=== PATIENT | female | born 1995 ===

== ENCOUNTER 2017-07-15 16:06 | Emergency (ER) | payer MEDICAID ==
[2017-07-15 16:07] VITALS: BMI 24.5
[2017-07-15 16:13] VITALS: BP 149/74; PULSE 87; RESP 16; TEMP 97.9; O2SAT 100
--- NOTE | 2017-07-15 16:41 | ED PDOC ---
HPI: Female Pain Time Seen by Provider: 07/15/17 16:38 Chief Complaint (Nursing): Female Genitourinary Chief Complaint (Provider): vaginal bleeding History Per: Patient Additional Complaint(s): 21-year-old female presents to emergency department with vaginal spotting that started today. Patient was seen on July 06 in [place] ED and was diagnosed with possible ectopic . Patient was instructed to have Beta repeated in 2 days but she has not done so as she was unable to obtain appointment with women's clinic until tomorrow. Patient started to have vaginal spotting and cramping lower abdominal pain today prompting ED visit. She denies fever or chills. Patient denies any dysuria. Past Medical History Reviewed: Historical Data, Nursing Documentation, Vital Signs Vital Signs: Last Vital Signs Temp 97.9 F 07/15/17 16:10 Pulse 87 07/15/17 16:10 Resp 16 07/15/17 16:10 BP 149/74 07/15/17 16:10 Pulse Ox 100 07/15/17 16:10 - Medical History PMH: No Chronic Diseases - Surgical History Surgical History: No Surg Hx - Family History Family History: States: No Known Family Hx - Living Arrangements Living Arrangements: With Family - Social History Current smoker - smoking cessation education provided: Yes ("sometimes") Alcohol: None Drugs: Denies - Home Medications Home Medications: Ambulatory Orders Medication Instructions Recorded 21/Iron Fu/Folic Acid 1 each PO DAILY #30 tablet 07/04/17 [ Complete Caplet] - Allergies Allergies/Adverse Reactions: Allergies Allergy/AdvReac Type Severity Reaction Status Date / Time pineapple Allergy ANGIOEDEMA Verified 07/15/17 16:10 Review of Systems ROS Statement: Except As Marked, All Systems Reviewed And Found Negative Constitutional: Negative for: Fever Genitourinary Female: Positive for: Vaginal Bleeding (spotting), Pelvic Pain. Negative for: Dysuria, Frequency, Incontinence, Hematuria, Vaginal Discharge, Rash Physical Exam - Reviewed Nursing Documentation Reviewed: Yes Vital Signs Reviewed: Yes - Physical Exam Appears: Positive for: Non-toxic Skin: Negative for: Rash Eye Exam: Positive for: Normal appearance Cardiovascular/Chest: Positive for: Regular Rate, Rhythm Respiratory: Positive for: Normal Breath Sounds Gastrointestinal/Abdominal: Positive for: Soft. Negative for: Tenderness, Distended, Guarding, Rebound Back: Negative for: L CVA Tenderness, R CVA Tenderness Extremity: Positive for: Normal ROM Neurologic/Psych: Positive for: Alert, Oriented - Laboratory Results Result Diagrams: 07/15/17 17:41 07/15/17 17:41 Urine POC: Positive Urine dip results: Positive for: Blood (moderate). Negative for: Leukocyte Esterase, Nitrate, Ketones, Glucose, Bilirubin, Protein - ECG O2 Sat by Pulse Oximetry: 100 Pulse Ox Interpretation: Normal - Other Rad OB US X-Ray: Read By Radiologist X-Ray Interpretation: see below Medical Decision Making Medical Decision Makin21 year old with vaginal spotting, possible ectopic Plan: Urine dip and test Beta quant CBC CMP OB TV US US: FINDINGS: Uterus: Uterus measures approximately 8 x 4 x 4.5 cm. Endometrium in the fundus measures 12.8 mm in width. Endometrium in the lower portions of the uterus is heterogeneous.. There is no intrauterine gestation. There is trace fluid in cervical canal. Ovaries: Left ovary measures approximately 3 x 1.5 x 2.7 cm.There are multiple small follicles. Right ovary measures approximately 3 x 1 cm. There is flow in both ovaries on Doppler imaging. Adnexa: There are no adnexal masses Free fluid: There is no free fluid. IMPRESSION: No intrauterine or ectopic gestation identified; thickened endometrium; minimal fluid in the cervical canal. Correlation with serial beta-hCG levels and followup sonography suggested as clinically indicated. Beta 07/04/17: 216 07/06/17: 249 Today: 284 Case was d/w OB household appliances salesperson, Dr. Okeefe. She states to have patient follow up tomorrow as scheduled with women's clinic for repeat beta. Advised NSAID's for pain as needed. Patient made aware she can RTED at any time if acutely worse. Disposition - Clinical Impression Clinical Impression: Threatened - Patient ED Disposition Is Patient to be Admitted: No Counseled Patient/Family Regarding: Studies Performed, Diagnosis, Need For Followup - Disposition Referrals: [facility] [Outside] Disposition: Routine/Home Disposition Time: 18:53 Condition: STABLE Additional Instructions: Follow up tomorrow as scheduled with women's clinic. Beta level needs to be repeated. Instructions: Threatened Miscarriage (ED) Forms: [employer] (Burmese) Results - Lab Results Lab Results: 07/15/17 07/15/17 17:41 17:41 WBC 5.2 RBC 4.65 Hgb 13.7 Hct 41.4 MCV 89.1 MCH 29.4 MCHC 33.0 RDW 14.9 H Plt Count 312 MPV 8.3 Neut % (Auto) 60.4 Lymph % (Auto) 28.8 [place] % (Auto) 8.4 Eos % (Auto) 1.1 Baso % (Auto) 1.3 Neut # 3.1 Lymph # 1.5 [place] # 0.4 Eos # 0.1 Baso # 0.1 Sodium 138 Potassium 3.7 Chloride 105 Carbon Dioxide 24 Anion Gap 13 BUN 10 Creatinine 0.6 L Est GFR ( Amer) > 60 Est GFR (Non-Af Amer) > 60 Random Glucose 82 Calcium 8.9 Total Bilirubin 0.5 AST 37 H D ALT 51 Alkaline Phosphatase 44 Total Protein 7.3 Albumin 4.3 Globulin 3.0 Albumin/Globulin Ratio 1.4 Beta HCG, Quant 284.95
[2017-07-15 17:58] LABS: BASO # 0.1 K/uL (0.0-0.2); BASO % 1.3 % (0.0-2.0); EOS # 0.1 K/uL (0.0-0.7); EOS % 1.1 % (0.0-4.0); HEMATOCRIT 41.4 % (34.0-47.0); LYMPH # 1.5 K/uL (1.0-4.3); LYMPH % 28.8 % (20.0-40.0); MEAN CELL VOLUME 89.1 fl (81.0-99.0); MEAN CORPUSCULAR HEMOGLOBIN 29.4 pg (27.0-31.0); MEAN PLATELET VOLUME 8.3 fl (7.2-11.7); MONO # 0.4 K/uL (0.0-0.8); MONO % 8.4 % (0.0-10.0); NEUT # 3.1 K/uL (1.8-7.0); NEUT % 60.4 % (50.0-75.0); NRBC % 0.3 % (0.0-0.0); RED CELL DISTRIBUTION WIDTH 14.9 % (11.5-14.5); WHITE BLOOD COUNT 5.2 K/uL (4.8-10.8)
[2017-07-15 18:03] LABS: ALB/GLOB RATIO 1.4 (1.0-2.1); ALKALINE PHOSPHATASE 44 U/L (38-126); ALT/SGPT 51 U/L (9-52); AST/SGOT 37 U/L (14-36); BILIRUBIN,TOTAL 0.5 mg/dl (0.2-1.3); BLOOD UREA NITROGEN 10 mg/dl (7-17); CALCIUM 8.9 mg/dL (8.4-10.2); CARBON DIOXIDE 24 mmol/L (22-30); CHLORIDE 105 mmol/L (98-107); GFR AFRICAN-AMERICAN > 60; GLUCOSE,RANDOM 82 mg/dL (65-105); POTASSIUM 3.7 MMOL/L (3.6-5.0); SODIUM 138 mmol/l (132-148); TOTAL PROTEIN 7.3 G/DL (6.3-8.2)
--- NOTE | 2017-07-15 18:44 | US ---
EXAM: US , Transvaginal EXAM DATE/TIME: 07/15/2017 5:10 PM CLINICAL HISTORY: 21 years old, female; Pain; Other: Bleeding; Gestational age or lmp: Unknown; Additional info: ? Ectopic, vaginal spotting TECHNIQUE: Real-time transvaginal obstetrical ultrasound of the maternal pelvis and a first trimester with image documentation. Transvaginal imaging was used for better evaluation of the fetus and adnexa. COMPARISON: There are no prior studies for comparison. FINDINGS: Uterus: Uterus measures approximately 8 x 4 x 4.5 cm. Endometrium in the fundus measures 12.8 mm in width. Endometrium in the lower portions of the uterus is heterogeneous.. There is no intrauterine gestation. There is trace fluid in cervical canal. Ovaries: Left ovary measures approximately 3 x 1.5 x 2.7 cm.There are multiple small follicles. Right ovary measures approximately 3 x 1 cm. There is flow in both ovaries on Doppler imaging. Adnexa: There are no adnexal masses Free fluid: There is no free fluid. IMPRESSION: No intrauterine or ectopic gestation identified; thickened endometrium; minimal fluid in the cervical canal Correlation with serial beta-hCG levels and followup sonography suggested as clinically indicated
== END 2017-07-15 19:19 | disposition home or self-care (01) ==
LOC: H.ER 16:06
DX: O20.0 Threatened abortion (principal)

== ENCOUNTER 2017-07-16 03:01 | Emergency (ER) | payer MEDICAID ==
[2017-07-16 03:14] VITALS: BMI 28.1
[2017-07-16 03:15] VITALS: BP 131/85; PULSE 96; RESP 16; TEMP 98.6; O2SAT 100
[2017-07-16 03:45] LABS: BASO # 0.1 K/uL (0.0-0.2); BASO % 0.8 % (0.0-2.0); EOS # 0.1 K/uL (0.0-0.7); EOS % 1.7 % (0.0-4.0); HEMATOCRIT 41.1 % (34.0-47.0); LYMPH # 1.9 K/uL (1.0-4.3); LYMPH % 29.1 % (20.0-40.0); MEAN CELL VOLUME 89.1 fl (81.0-99.0); MEAN CORPUSCULAR HEMOGLOBIN 29.9 pg (27.0-31.0); MEAN CORPUSCULAR HGB CONC 33.6 g/dL (33.0-37.0); MEAN PLATELET VOLUME 7.9 fl (7.2-11.7); MONO # 0.7 K/uL (0.0-0.8); NEUT # 3.9 K/uL (1.8-7.0); NEUT % 58.4 % (50.0-75.0); NRBC % 0.1 % (0.0-0.0); WHITE BLOOD COUNT 6.6 K/uL (4.8-10.8)
[2017-07-16 03:56] LABS: RBC URINE 2697 /hpf (0-3); URINE BILIRUBIN NEGATIVE (NEGATIVE); URINE BLOOD LARGE (NEGATIVE); URINE COLOR RED (YELLOW); URINE GLUCOSE (UA) NEG (Normal); URINE KETONE NEGATIVE (NEGATIVE); URINE LEUKOCYTE ESTERASE NEG Leu/uL (Negative); URINE PROTEIN 100 mg/dL (NEGATIVE); URINE UROBILINOGEN 0.2-1.0 mg/dL (0.2-1.0); WBC URINE 11 /hpf (0-5)
[2017-07-16 04:00] LABS: BLOOD UREA NITROGEN 13 mg/dl (7-17); CALCIUM 8.9 mg/dL (8.4-10.2); CARBON DIOXIDE 26 mmol/L (22-30); CHLORIDE 108 mmol/L (98-107); GFR AFRICAN-AMERICAN > 60; GLUCOSE,RANDOM 83 mg/dL (65-105); POTASSIUM 4.5 MMOL/L (3.6-5.0); SODIUM 142 mmol/l (132-148)
--- NOTE | 2017-07-16 04:55 | ED PDOC ---
HPI: Female Pain Time Seen by Provider: 07/16/17 03:18 Chief Complaint (Nursing): Female Genitourinary Chief Complaint (Provider): abdominal pain/vaginal bleeding History Per: Patient (21 y/o female here for vaginal bleeding/abdominal pain worsening today. Was seen earlier in [place] for evaluation of similar symptoms and was told she had a possible ectopic vs early and needed repeat beta quant testing. f/u in ED today with US noting no IUP and beta quant 216. Notes worsening pain and in ED now for evaluation. TOok tylenol prior to arrival without relief.) Past Medical History Reviewed: Historical Data, Nursing Documentation, Vital Signs Vital Signs: Last Vital Signs Temp 98.6 F 07/16/17 03:13 Pulse 96 H 07/16/17 03:13 Resp 16 07/16/17 03:13 BP 131/85 07/16/17 03:13 Pulse Ox 100 07/16/17 03:13 - Medical History PMH: Asthma, Gastritis Denies: Depression - Family History Family History: States: No Known Family Hx - Immunization History Hx Tetanus Toxoid Vaccination: No Hx Influenza Vaccination: No Hx Pneumococcal Vaccination: No - Home Medications Home Medications: Ambulatory Orders Medication Instructions Recorded 21/Iron Fu/Folic Acid 1 each PO DAILY #30 tablet 07/04/17 [ Complete Caplet] Ibuprofen [Motrin] 600 mg PO Q8 PRN #21 tab 07/16/17 oxyCODONE/Acetaminophen [Percocet 1 ea PO Q6 PRN #5 tab 07/16/17 5/325 mg Tab] - Allergies Allergies/Adverse Reactions: Allergies Allergy/AdvReac Type Severity Reaction Status Date / Time pineapple Allergy ANGIOEDEMA Verified 07/16/17 03:12 Review of Systems ROS Statement: Except As Marked, All Systems Reviewed And Found Negative Physical Exam - Reviewed Nursing Documentation Reviewed: Yes Vital Signs Reviewed: Yes - Physical Exam Appears: Positive for: Well, Non-toxic, No Acute Distress Head Exam: Positive for: ATRAUMATIC, NORMAL INSPECTION, NORMOCEPHALIC Skin: Positive for: Normal Color, Warm, DRY Eye Exam: Positive for: EOMI, Normal appearance, PERRL ENT: Positive for: Normal ENT Inspection Neck: Positive for: Normal, Painless ROM Cardiovascular/Chest: Positive for: Regular Rate, Rhythm Respiratory: Positive for: CNT, Normal Breath Sounds Gastrointestinal/Abdominal: Positive for: Normal Exam, Bowel Sounds, Soft Pelvic Exam: Positive for: Other (blood in vaginal vault with ?products noted.) Back: Positive for: Normal Inspection Extremity: Positive for: Normal ROM Neurologic/Psych: Positive for: Alert, Oriented - Laboratory Results Result Diagrams: 07/16/17 03:30 07/16/17 03:30 - ECG O2 Sat by Pulse Oximetry: 100 - Progress ED Course And Treament: Morphine 2 mg iv x 1 dose for pain beta 175 d/w Dr. Okeefe; advised f/u with clinic and pain management. morphine 4 mg iv x 2nd dose for pain Disposition - Clinical Impression Clinical Impression: Miscarriage - Patient ED Disposition Is Patient to be Admitted: No - Disposition Referrals: [facility] [Outside] Disposition: Routine/Home Disposition Time: 05:02 Condition: FAIR Prescriptions: Ibuprofen [Motrin] 600 mg PO Q8 PRN #21 tab PRN Reason: Pain, Moderate (4-7) oxyCODONE/Acetaminophen [Percocet 5/325 mg Tab] 1 ea PO Q6 PRN #5 tab PRN Reason: Pain, Moderate (4-7) Instructions: Spontaneous Miscarriage (ED) Forms: [employer] (Bulgarian), [facility] ED School/Work Excuse
[2017-07-16] MEDS ORDERED: Morphine 4 MG/ML VIAL IVP ONE (05:08)
[2017-07-16] MEDS ORDERED: Morphine 4 MG/ML VIAL ONE (05:11)
== END 2017-07-16 05:54 | disposition home or self-care (01) ==
LOC: H.ER 03:01
DX: O03.9 Complete or unspecified spontaneous abortion without complication (principal); J45.909 Unspecified asthma, uncomplicated
CPT/HCPCS: 80048; 81003; 81025; 84702; 85025; 87086; 88305; 96374; 96376; 99284; J2270

== ENCOUNTER 2018-02-22 23:33 | Emergency (ER) | payer SELFPAY ==
[2018-02-22 23:35] VITALS: BMI 28.1
[2018-02-22 23:48] VITALS: TEMP 99.2
[2018-02-23] MEDS ORDERED: Sodium Chloride 0.9% 1,000 ML IV STA (01:14)
--- NOTE | 2018-02-23 01:46 | ED PDOC ---
HPI: Abdomen Time Seen by Provider: 02/23/18 00:51 Chief Complaint (Nursing): Abdominal Pain Chief Complaint (Provider): Abdominal Pain History Per: Patient History/Exam Limitations: no limitations Onset/Duration Of Symptoms: Days (x 3) Current Symptoms Are (Timing): Still Present Quality Of Discomfort: "Pain" Associated Symptoms: Nausea, Vomiting, Diarrhea Additional Complaint(s): 22 year old female with a history of ectopic presents to the ED with abdominal pain associated with nausea, nbnb vomiting and diarrhea for the last 3 days. Patient reports her LMP was irregular because she only bled for 3 days. She is unsure about her status. PMD: none provided Past Medical History Reviewed: Historical Data, Nursing Documentation, Vital Signs Vital Signs: Last Vital Signs Temp 99.2 F 02/22/18 23:46 Pulse 87 02/23/18 05:45 Resp 16 02/23/18 05:45 BP 122/87 02/23/18 05:45 Pulse Ox 98 02/23/18 05:45 - Medical History PMH: Asthma, Gastritis Denies: Depression Other PMH: ectopic - Surgical History Surgical History: No Surg Hx - Family History Family History: States: Unknown Family Hx - Social History Current smoker - smoking cessation education provided: No Alcohol: None Drugs: Denies - Immunization History Hx Tetanus Toxoid Vaccination: No Hx Influenza Vaccination: No Hx Pneumococcal Vaccination: No - Home Medications Home Medications: Ambulatory Orders Medication Instructions Recorded 21/Iron Fu/Folic Acid 1 each PO DAILY #30 tablet 07/04/17 [ Complete Caplet] Ibuprofen [Motrin] 600 mg PO Q8 PRN #21 tab 07/16/17 oxyCODONE/Acetaminophen [Percocet 1 ea PO Q6 PRN #5 tab 07/16/17 5/325 mg Tab] Dicyclomine [Bentyl] 20 mg PO Q12 PRN #20 tab 02/23/18 Ondansetron ODT [Zofran ODT] 4 mg PO Q6 PRN #8 odt 02/23/18 - Allergies Allergies/Adverse Reactions: Allergies Allergy/AdvReac Type Severity Reaction Status Date / Time pineapple Allergy ANGIOEDEMA Verified 02/22/18 23:45 Review of Systems ROS Statement: Except As Marked, All Systems Reviewed And Found Negative Gastrointestinal: Positive for: Abdominal Pain Physical Exam - Reviewed Nursing Documentation Reviewed: Yes Vital Signs Reviewed: Yes - Physical Exam Appears: Positive for: Uncomfortable Head Exam: Positive for: ATRAUMATIC, NORMAL INSPECTION, NORMOCEPHALIC Skin: Positive for: Normal Color, Warm, Dry Eye Exam: Positive for: EOMI, Normal appearance, PERRL Neck: Positive for: Normal, Painless ROM, Supple Cardiovascular/Chest: Positive for: Regular Rate, Rhythm. Negative for: Murmur Respiratory: Positive for: Normal Breath Sounds. Negative for: Respiratory Distress Gastrointestinal/Abdominal: Positive for: Tenderness (RLQ and suprapubic ) Extremity: Positive for: Normal ROM. Negative for: Deformity Neurologic/Psych: Positive for: Alert, Oriented. Negative for: Motor/Sensory Deficits - Laboratory Results Result Diagrams: 02/23/18 01:57 02/23/18 01:57 - ECG O2 Sat by Pulse Oximetry: 100 (RA) Pulse Ox Interpretation: Normal Medical Decision Making Medical Decision Making: Time: 01:14 Impression: 22 year old female with abdominal pain Initial Plan: --Abd and Pelvis CT --Beta-HCG --CMP --Lipase --Urine preg --Urine dip --Morphine 4 mg IVP --NS IV 1,000 mls/hr Abd and Pelvis CT FINDINGS: Lung bases: Unremarkable. No mass. No consolidation. ABDOMEN: Liver: Unremarkable. No mass. Gallbladder and bile ducts: Unremarkable. No ductal dilation. Pancreas: Unremarkable. No mass. No ductal dilation. Spleen: Left upper quadrant splenule. Unremarkable spleen. Adrenals: Unremarkable. No mass. Kidneys and ureters: Right renal hypodensity. No hydronephrosis. Stomach and bowel: Diverticulosis. No obstruction. No mucosal thickening. PELVIS: Appendix: Normal appendix. Bladder: Partially decompressed bladder with bladder wall thickening. Correlation with urinalysis is recommended only if clinical cystitis is suspected. Reproductive: Uterus is seen. ABDOMEN and PELVIS: Bones/joints: Femoral bone island. No acute fracture. No dislocation. Soft tissues: Body piercing umbilical ring. Vasculature: Unremarkable. No abdominal aortic aneurysm. Lymph nodes: Multiple subcentimeter mesenteric and ileocolic lymph nodes. Findings are nonspecific but may represent mesenteric adenitis. IMPRESSION: No acute findings Time: 05:32 --Patient reports an improvement of symptoms and is stable for discharge. Labs were reviewed and reveal no clinically significant abnormalities. Diagnosis is gastroentertitis. ---- Scribe Attestation: Documented by Sandie Chinchilla, acting as a scribe for Brad Clark MD Provider Scribe Attestation: All medical record entries made by the Scribe were at my direction and personally dictated by me. I have reviewed the chart and agree that the record accurately reflects my personal performance of the history, physical exam, medical decision making, and the department course for this patient. I have also personally directed, reviewed, and agree with the discharge instructions and disposition. Disposition - Clinical Impression Clinical Impression: Gastroenteritis Counseled Patient/Family Regarding: Studies Performed, Diagnosis, Need For Followup, Rx Given - Disposition Disposition: Routine/Home Disposition Time: 05:00 Condition: STABLE Prescriptions: Dicyclomine [Bentyl] 20 mg PO Q12 PRN #20 tab PRN Reason: abdominal pain/diarrhea Ondansetron ODT [Zofran ODT] 4 mg PO Q6 PRN #8 odt PRN Reason: Nausea/Vomiting Instructions: Gastroenteritis (ED) Forms: [employer] (Irish)
[2018-02-23 02:03] LABS: BASO # 0.1 K/uL (0.0-0.2); BASO % 0.7 % (0.0-2.0); EOS # 0.2 K/uL (0.0-0.7); EOS % 2.5 % (0.0-4.0); HEMOGLOBIN 14.7 g/dL (12.0-16.0); LYMPH # 1.7 K/uL (1.0-4.3); LYMPH % 19.8 % (20.0-40.0); MEAN CELL VOLUME 90.4 fl (81.0-99.0); MEAN CORPUSCULAR HEMOGLOBIN 30.7 pg (27.0-31.0); MEAN CORPUSCULAR HGB CONC 33.9 g/dL (33.0-37.0); MEAN PLATELET VOLUME 8.4 fl (7.2-11.7); MONO # 0.4 K/uL (0.0-0.8); MONO % 5.2 % (0.0-10.0); NEUT # 6.1 K/uL (1.8-7.0); NEUT % 71.8 % (50.0-75.0); NRBC % 0.1 % (0.0-0.0); RBC 4.8 Mil/uL (3.80-5.20); RED CELL DISTRIBUTION WIDTH 13.9 % (11.5-14.5); WHITE BLOOD COUNT 8.5 K/uL (4.8-10.8)
[2018-02-23 02:11] LABS: ALB/GLOB RATIO 1.4 (1.0-2.1); ALBUMIN 4.3 g/dL (3.5-5.0); ALT/SGPT 23 U/L (9-52); AST/SGOT 27 U/L (14-36); BLOOD UREA NITROGEN 7 mg/dl (7-17); CALCIUM 9.5 mg/dL (8.4-10.2); GFR AFRICAN-AMERICAN > 60; GFR NON-AFRICAN AMERICAN > 60; LIPASE 142 U/L (23-300)
[2018-02-23] MEDS ORDERED: Sodium Chloride 0.9% 50 ML IV ONE (03:17)
[2018-02-23] MEDS ORDERED: Iohexol 300 100 ML IJ ONE (03:17)
[2018-02-23 05:46] VITALS: BP 122/87; PULSE 87; RESP 16
--- NOTE | 2018-02-23 13:05 | CT ---
Date of service: 02/23/2018 PROCEDURE: CT Abdomen and Pelvis HISTORY: lower abd pain COMPARISON: None. TECHNIQUE: Contiguous axial images of the abdomen and pelvis. . Coronal and Sagittal reformats generated. 95 cc Omnipaque 300 contrast material injected Radiation dose: Total exam DLP = 529.95 mGy-cm. This CT exam was performed using one or more of the following dose reduction techniques: Automated exposure control, adjustment of the mA and/or kV according to patient size, and/or use of iterative reconstruction technique. FINDINGS: LOWER THORAX: Unremarkable. LIVER: Unremarkable. No gross lesion or ductal dilatation. GALLBLADDER AND BILE DUCTS: Unremarkable. PANCREAS: Unremarkable. No mass. No ductal dilatation. SPLEEN: Unremarkable. No splenomegaly. ADRENALS: Unremarkable. KIDNEYS AND URETERS: Symmetric nephrograms the the No evidence of nephrolithiasis or hydronephrosis. . There is a very tiny rounded sub cm low-attenuation focus upper pole right kidney that is too small to characterize though could represent tiny cyst. Followup ultrasound could be performed to confirm. BLADDER: Urinary bladder is incompletely distended which may in part account for thick-walled appearance. Correlation urinalysis to exclude the cystitis. . Grossly unremarkable. REPRODUCTIVE: Unremarkable. APPENDIX: Normal appendix BOWEL: Unremarkable. No obstruction. No gross mural thickening. Moderate amount of stool seen within the cecum and ascending colon consistent with mild localized constipation PERITONEUM: Unremarkable. No fluid collection. No free air. LYMPH NODES: Unremarkable. No enlarged lymph nodes. VASCULATURE: Unremarkable. No aortic aneurysm. BONES: Small bone island or osteoma within the left femoral head. OTHER FINDINGS: None. IMPRESSION: Intra abdominal pathology. Suspect tiny cyst upper pole right kidney. Mild fatty hepatic infiltration.
[2018-02-23 20:14] VITALS: O2SAT 100
== END 2018-02-23 05:45 | disposition home or self-care (01) ==
LOC: H.ER 23:33
DX: K52.9 Noninfective gastroenteritis and colitis, unspecified (principal)
CPT/HCPCS: 74177; 80053; 81025; 83690; 84702; 85025; 96361; 96374; 96376; 99283; J2270; J7030; Q9967

== ENCOUNTER 2018-09-05 21:00 | Emergency (ER) | payer SELFPAY ==
[2018-09-05 21:00] VITALS: BMI 28.1
[2018-09-05 21:08] VITALS: RESP 18; O2SAT 99
--- NOTE | 2018-09-05 21:48 | ED PDOC ---
HPI: Abdomen Time Seen by Provider: 09/05/18 21:33 Chief Complaint (Nursing): Female Genitourinary Chief Complaint (Provider): pelvic pain History Per: Patient History/Exam Limitations: no limitations Onset/Duration Of Symptoms: Days (3), Waxing/Waning Current Symptoms Are (Timing): Still Present Location Of Pain/Discomfort: Suprapubic Additional Complaint(s): 22 y/o female presents for evaluation of intermittent pelvic cramping x 3 days. Patient states she took a test today and it was positive. Denies fever, nausea/vomiting, chest pain, shortness of breath, palpitations, changes in bowel movements, urinary symptoms. Abnormal Vaginal Bleeding: No Last Menstral Period: 08/06/18 : 3 Para: 0 Miscarriage: 2 Past Medical History Reviewed: Historical Data, Nursing Documentation, Vital Signs Vital Signs: Last Vital Signs Temp 98.3 F 09/05/18 21:03 Pulse 88 09/05/18 21:03 Resp 18 09/05/18 21:03 BP 129/84 09/05/18 21:03 Pulse Ox 99 09/05/18 21:03 - Medical History PMH: Asthma, Gastritis Denies: Depression - Surgical History Surgical History: No Surg Hx - Family History Family History: States: Unknown Family Hx - Living Arrangements Living Arrangements: With Family - Immunization History Hx Tetanus Toxoid Vaccination: No Hx Influenza Vaccination: No Hx Pneumococcal Vaccination: No - Home Medications Home Medications: Ambulatory Orders Medication Instructions Recorded 21/Iron Fu/Folic Acid 1 each PO DAILY #30 tablet 07/04/17 [ Complete Caplet] Ibuprofen [Motrin] 600 mg PO Q8 PRN #21 tab 07/16/17 oxyCODONE/Acetaminophen [Percocet 1 ea PO Q6 PRN #5 tab 07/16/17 5/325 mg Tab] Dicyclomine [Bentyl] 20 mg PO Q12 PRN #20 tab 02/23/18 Ondansetron ODT [Zofran ODT] 4 mg PO Q6 PRN #8 odt 02/23/18 Cephalexin [Keflex] 500 mg PO QID #27 capsule 09/05/18 - Allergies Allergies/Adverse Reactions: Allergies Allergy/AdvReac Type Severity Reaction Status Date / Time pineapple Allergy ANGIOEDEMA Verified 02/22/18 23:45 Review of Systems ROS Statement: Except As Marked, All Systems Reviewed And Found Negative Genitourinary Female: Positive for: Pelvic Pain Physical Exam - Reviewed Nursing Documentation Reviewed: Yes Vital Signs Reviewed: Yes - Physical Exam Appears: Positive for: Well, Non-toxic, No Acute Distress Head Exam: Positive for: ATRAUMATIC, NORMAL INSPECTION, NORMOCEPHALIC Skin: Positive for: Normal Color Eye Exam: Positive for: Normal appearance ENT: Positive for: Normal ENT Inspection Cardiovascular/Chest: Positive for: Regular Rate, Rhythm Respiratory: Positive for: Normal Breath Sounds Gastrointestinal/Abdominal: Positive for: Bowel Sounds, Soft, Tenderness (suprapubic) Back: Positive for: Normal Inspection Extremity: Positive for: Normal ROM Neurologic/Psych: Positive for: Alert, Oriented (x3) - Laboratory Results Result Diagrams: 09/05/18 22:04 09/05/18 22:04 - ECG O2 Sat by Pulse Oximetry: 99 - Progress ED Course And Treament: -upreg -udip -cbc -cmp -beta hcg -ob tv u/s EXAM: US Obstetrical, Complete <14 weeks CLINICAL HISTORY: Pain TECHNIQUE: Transvaginal and transabdominal imaging of the maternal pelvis and a <14 week gestation with image documentation. COMPARISON: None provided. FINDINGS: GESTATION: At this time, there is no identified intrauterine or ectopic gestational sac. Short-term reevaluation in 7 to-10 days could be considered. ENDOMETRIUM: The endometrial echo complex is thickened measuring up to 1.6 cm in AP dimension. This could represent a decidual reaction. A small volume of fluid is also seen within the endometrial canal. UTERUS: Unremarkable. No myometrial mass. CERVIX: Closed. Unremarkable. Measured 3.7 cm longitudinally. OVARIES: Unremarkable. No mass. Good perfusion bilaterally. Several small right ovarian follicles are present. The largest follicle measured 2.1 x 1.4 x 2.0 cm and could possibly represent a corpus luteum cyst. FREE FLUID: No free fluid. IMPRESSION: 1. No identification of intrauterine or ectopic gestational sac at this time. Short-term reevaluation in 7-10 days could be considered. 2. Thickening of the endometrial echo complex measuring up to 1.6 cm in AP dimension. 3. A small volume of fluid is seen within the endometrial canal. 4. Several right ovarian follicles are present. Patient educated on findings, discharged with rx Keflex (dose given in ED) Advised follow up with Outside Installer Apprentice in 48 hours for repeat beta Return precautions given Disposition - Clinical Impression Clinical Impression: Urinary tract infection, Threatened - Patient ED Disposition Is Patient to be Admitted: No Counseled Patient/Family Regarding: Studies Performed, Diagnosis, Need For Followup, Rx Given - Disposition Referrals: [facility] [Outside] Disposition: Routine/Home Disposition Time: 23:33 Condition: IMPROVED Prescriptions: Cephalexin [Keflex] 500 mg PO QID #27 capsule Instructions: Threatened Miscarriage, Urinary Tract Infections in Adults
[2018-09-05 22:13] LABS: BASO # 0.1 K/uL (0.0-0.2); BASO % 1.4 % (0.0-2.0); EOS # 0.2 K/uL (0.0-0.7); EOS % 3.2 % (0.0-4.0); HEMOGLOBIN 13.2 g/dL (12.0-16.0); LYMPH # 1.7 K/uL (1.0-4.3); LYMPH % 29.5 % (20.0-40.0); MEAN CELL VOLUME 87.6 fl (81.0-99.0); MEAN CORPUSCULAR HEMOGLOBIN 29.2 pg (27.0-31.0); MEAN CORPUSCULAR HGB CONC 33.4 g/dL (33.0-37.0); MEAN PLATELET VOLUME 8.2 fl (7.2-11.7); MONO # 0.5 K/uL (0.0-0.8); NEUT # 3.3 K/uL (1.8-7.0); NEUT % 57.9 % (50.0-75.0); RBC 4.5 Mil/uL (3.80-5.20); RED CELL DISTRIBUTION WIDTH 13.8 % (11.5-14.5); WHITE BLOOD COUNT 5.8 K/uL (4.8-10.8)
[2018-09-05 22:18] LABS: ALB/GLOB RATIO 1.4 (1.0-2.1); ALBUMIN 4.1 g/dL (3.5-5.0); ALT/SGPT 20 U/L (9-52); AST/SGOT 26 U/L (14-36); BLOOD UREA NITROGEN 9 mg/dl (7-17); CALCIUM 9.6 mg/dL (8.4-10.2); GFR NON-AFRICAN AMERICAN > 60
[2018-09-05 22:20] LABS: SPERM URINE RARE /hpf; SQUAMOUS EPITHIAL 56 /hpf (0-5); URINE BACTERIA OCC (<OCC); URINE BILIRUBIN NEGATIVE (NEGATIVE); URINE BLOOD NEGATIVE (NEGATIVE); URINE CLARITY CLOUDY (Clear); URINE COLOR YELLOW (YELLOW); URINE GLUCOSE (UA) NEG (NEGATIVE); URINE LEUKOCYTE ESTERASE LARGE Leu/uL (Negative); URINE PROTEIN 30 mg/dL (NEGATIVE)
[2018-09-05] MEDS ORDERED: Potassium Chloride 20 mEq ER Tab PO ONE ×2 (23:42→23:48)
[2018-09-06 01:11] VITALS: BP 122/82; PULSE 81; TEMP 98
--- NOTE | 2018-09-06 07:27 | CARD ---
APPROVED REPORT Date of service: 09/06/2018 EKG Measurement Heart [id number] <Conclusion> Normal sinus rhythm Normal ECG
--- NOTE | 2018-09-06 11:01 | US ---
Date of service: 09/05/2018 PROCEDURE: OB Pelvic Ultrasound HISTORY: : pelvic pain LMP: 08/06/2018 COMPARISON: No relevant prior imaging. FINDINGS: UTERUS: Uterus measures 7.3 x 4.2 x 5.2 cm. Anteverted. Normal in size and appearance. Endometrium measures 16 mm and contains trace fluid. No intrauterine gestational sac identified. CERVIX: Measures 3.7 cm. Long and closed. No cervical abnormality seen. RIGHT OVARY: Measures 2.6 x 2.2 x 3.3 cm. Corpus luteum measuring 2.1 x 1.4 x 2.0. Normal flow. LEFT OVARY: Measures 2.5 x 1.9 x 1.9 cm. No solid mass. Normal flow. FREE FLUID: None. OTHER FINDINGS: None. IMPRESSION: Trace endometrial fluid. No evidence of intrauterine gestation. Findings may represent early normal/abnormal with ectopic not excluded. Close clinical follow-up with serial pelvic sonography and serum beta HCG levels recommended.
== END 2018-09-06 01:00 | disposition home or self-care (01) ==
LOC: H.ER 21:00
DX: O20.0 Threatened abortion (principal); O23.40 Unspecified infection of urinary tract in pregnancy, unspecified trimester; O34.80 Maternal care for other abnormalities of pelvic organs, unspecified trimester; N85.00 Endometrial hyperplasia, unspecified; R93.89 Abnormal findings on diagnostic imaging of other specified body structures

== ENCOUNTER 2018-09-26 21:44 | Emergency (ER) | payer MEDICAID, SELFPAY ==
[2018-09-26 21:45] VITALS: BMI 28.1
[2018-09-26 22:42] VITALS: RESP 18; TEMP 98.5; O2SAT 99
[2018-09-26] MEDS ORDERED: Lactated Ringer's 1,000 ML IV STA (23:26)
--- NOTE | 2018-09-27 00:04 | ED PDOC ---
HPI: Female Pain Time Seen by Provider: 09/26/18 23:14 Chief Complaint (Nursing): Female Genitourinary Chief Complaint (Provider): Female Genitourinary History Per: Patient History/Exam Limitations: no limitations Onset/Duration Of Symptoms: Days (x 2) Current Symptoms Are (Timing): Still Present Quality Of Discomfort: Cramping, "Pain" Additional Complaint(s): 22 year old female with no significant medical history presents to the ED with c ramping pelvic pain in and vaginal bleeding beginning two days ago and worsening since onset. Patient reports that vaginal bleeding initially began as spotting and has since increased greatly, to the point of mimicking her period. She has used two pads today. Patient states she had similar symptoms during a previous miscarriage. She had an ultrasound already, but it did not show an intrauterine . Patient is estimated to be 7 weeks and 3 days old. Offers no other medical complaints. 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 Abnormal Vaginal Bleeding: Yes Last Menstral Period: 08/06/2018 : 2 Para: 0 Past Medical History Reviewed: Historical Data, Nursing Documentation, Vital Signs Vital Signs: Last Vital Signs Temp 98.5 F 09/26/18 22:38 Pulse 94 H 09/26/18 22:38 Resp 18 09/26/18 22:38 BP 119/71 09/26/18 22:38 Pulse Ox 99 09/26/18 22:38 - Medical History PMH: Asthma, Gastritis Denies: Depression - Surgical History Surgical History: No Surg Hx - Family History Family History: States: Unknown Family Hx - Social History Current smoker - smoking cessation education provided: No - Immunization History Hx Tetanus Toxoid Vaccination: No Hx Influenza Vaccination: No Hx Pneumococcal Vaccination: No - Home Medications Home Medications: Ambulatory Orders Medication Instructions Recorded 21/Iron Fu/Folic Acid 1 each PO DAILY #30 tablet 07/04/17 [ Complete Caplet] Ibuprofen [Motrin] 600 mg PO Q8 PRN #21 tab 07/16/17 oxyCODONE/Acetaminophen [Percocet 1 ea PO Q6 PRN #5 tab 07/16/17 5/325 mg Tab] Dicyclomine [Bentyl] 20 mg PO Q12 PRN #20 tab 02/23/18 Ondansetron ODT [Zofran ODT] 4 mg PO Q6 PRN #8 odt 07/14/18 Cephalexin [Keflex] 500 mg PO QID #27 capsule 09/05/18 Doxylamine/Pyridoxine HCl (B6) 1 tab PO ASDIR #20 tab 09/28/18 [Haylee Cardenas 10-10 mg Tablet] - Allergies Allergies/Adverse Reactions: Allergies Allergy/AdvReac Type Severity Reaction Status Date / Time pineapple Allergy ANGIOEDEMA Verified 02/22/18 23:45 Review of Systems ROS Statement: Except As Marked, All Systems Reviewed And Found Negative Constitutional: Negative for: Fever Gastrointestinal: Negative for: Nausea, Vomiting, Abdominal Pain, Diarrhea Genitourinary Female: Positive for: Vaginal Bleeding, Pelvic Pain. Negative for: Dysuria, Frequency, Incontinence, Hematuria Physical Exam - Reviewed Nursing Documentation Reviewed: Yes Vital Signs Reviewed: Yes - Physical Exam Appears: Positive for: Non-toxic, In Acute Distress (mild painful distress) Head Exam: Positive for: ATRAUMATIC, NORMAL INSPECTION, NORMOCEPHALIC Skin: Positive for: Normal Color, Warm, Dry. Negative for: Rash Eye Exam: Positive for: EOMI, Normal appearance, PERRL Neck: Positive for: Normal, Painless ROM, Supple Cardiovascular/Chest: Positive for: Regular Rate, Rhythm. Negative for: Murmur Respiratory: Positive for: CNT, Normal Breath Sounds Gastrointestinal/Abdominal: Positive for: Soft, Tenderness (mild suprapubic tenderness). Negative for: Mass, Guarding, Rebound Extremity: Positive for: Normal ROM (x 4). Negative for: Deformity Neurologic/Psych: Positive for: Alert, Oriented (x 3). Negative for: Motor/Sensory Deficits - Laboratory Results Result Diagrams: 09/26/18 23:40 09/26/18 23:40 - ECG O2 Sat by Pulse Oximetry: 99 (RA) Pulse Ox Interpretation: Normal Medical Decision Making Medical Decision Makin:23 Impression: vaginal bleeding and pelvic pain in Differential diagnoses include but are not limited to: threatened miscarriage, ectopic , dehydration Initial Plan: --Blood type and screen --CBC --CMP --Beta-HCG --PTT --PT --Urine dip --Urine preg --Tylenol 975 mg PO --Lactated Ringer's IV 1,000 mls --OB Transvag US 00:00 --Patient is signed out to Dr. Clark by this provider pending ER workup, reassessment and disposition. -------- --------- Scribe Attestation: Documented by Sandie Chinchilla acting as a scribe for Sandra Jackson MD Provider Scribe Attestation: All medical record entries made by the Scribe were at my direction and personally dictated by me. I have reviewed the chart and agree that the record accurately reflects my personal performance of the history, physical exam, medical decision making, and the department course for this patient. I have also personally directed, reviewed, and agree with the discharge instructions and di sposition. Disposition - Clinical Impression Clinical Impression: Threatened - Patient ED Disposition Is Patient to be Admitted: Transfer of Care - Disposition [facility]] Disposition: Transfer of Care Disposition Time: 00:00 Condition: STABLE Patient Signed Over To: Brad Clark
[2018-09-27 00:10] LABS: BASO % 0.7 % (0.0-2.0); EOS # 0.1 K/uL (0.0-0.7); EOS % 2.7 % (0.0-4.0); HEMOGLOBIN 14.1 g/dL (12.0-16.0); LYMPH # 1.6 K/uL (1.0-4.3); LYMPH % 30.3 % (20.0-40.0); MEAN CELL VOLUME 88.3 fl (81.0-99.0); MEAN CORPUSCULAR HEMOGLOBIN 29.4 pg (27.0-31.0); MEAN CORPUSCULAR HGB CONC 33.3 g/dL (33.0-37.0); MEAN PLATELET VOLUME 8.5 fl (7.2-11.7); MONO # 0.5 K/uL (0.0-0.8); MONO % 9.1 % (0.0-10.0); NEUT % 57.2 % (50.0-75.0); NRBC % 0.1 % (0.0-0.0); RBC 4.81 Mil/uL (3.80-5.20); WHITE BLOOD COUNT 5.3 K/uL (4.8-10.8)
[2018-09-27 00:12] LABS: PROTHROMBIN TIME 11.7 Seconds (9.8-13.1)
[2018-09-27 00:14] LABS: PARTIAL THROMBOPLASTIN TIME 37.6 Seconds (25.6-37.1)
--- NOTE | 2018-09-27 00:24 | ED PDOC ---
- Laboratory Results Result Diagrams: 09/26/18 23:40 09/26/18 23:40 Lab Results: PT 11.7 Seconds (9.8-13.1) 09/26/18 23:40 INR 1.0 09/26/18 23:40 APTT 37.6 Seconds (25.6-37.1) H 09/26/18 23:40 - ECG O2 Sat by Pulse Oximetry: 99 (RA) Pulse Ox Interpretation: Normal Medical Decision Making Medical Decision Makin:00 Patient signed out to this provider pending ER workup, reassessment and final ER disposition. 02:16 US FINDINGS: UTERUS: Uterus measures 9.0 x 5.0 x 6.1 cm and is anteverted. A tiny sac like structure is seen within the endometrium measuring 0.8 cm. This may represent a gestational sac although it is too small to definitively characterize. No yolk sac or pole can be seen. Unclear if this is due to early phase of the gestation versus a possible empty gestational sac. Please correlate clinically and if indicated short-term followup an approximately 1 week could be obtained. CERVIX: The cervix measures 3.1 cm and appears closed. OVARIES: Unremarkable. No mass. FREE FLUID: No free fluid. MISCELLANEOUS: Right ovary measures 4.0 x 1.9 x 1.7 cm. Left ovary measures 3.0 x 1.7 x 1.7 cm. IMPRESSION: 1. Uterus measures 9.0 x 5.0 x 6.1 cm and is anteverted. 2. The cervix measures 3.1 cm and appears closed. 3. A tiny sac like structure is seen within the endometrium measuring 0.8 cm. This may represent a gestational sac although it is too small to definitively characterize. No yolk sac or pole can be seen. Unclear if this is due to early phase of the gestation versus a possible empty gestational sac. Please correlate clinically and if indicated short-term followup an approximately 1 week could be obtained. 4. Right ovary measures 4.0 x 1.9 x 1.7 cm. 5. Left ovary measures 3.0 x 1.7 x 1.7 cm. 02:34 Patient is stable for discharge. Diagnosis is threatened miscarriage. Patient w as advised to follow up with [facility] for repeat beta in 2 days or return to the ER. Scribe Attestation: Documented by Sandie Chinchilla acting as a scribe for Brad Clark MD Provider Scribe Attestation: All medical record entries made by the Scribe were at my direction and personally dictated by me. I have reviewed the chart and agree that the record accurately reflects my personal performance of the history, physical exam, medical decision making, and the department course for this patient. I have also personally directed, reviewed, and agree with the discharge instructions and disposition. Disposition - Clinical Impression Clinical Impression: Threatened - POA Present On Arrival: None - Disposition [facility]errals[facility] [[facility]] Disposition: Routine/Home Disposition Time: 02:34 Condition: STABLE Instructions: Threatened Miscarriage Forms: [employer] ([place])
[2018-09-27 00:31] LABS: BLOOD UREA NITROGEN 14 mg/dl (7-17); CALCIUM 9.5 mg/dL (8.4-10.2); GFR NON-AFRICAN AMERICAN > 60
[2018-09-27 02:50] VITALS: BP 115/73; PULSE 76
--- NOTE | 2018-09-27 11:42 | US ---
Date of service: 09/27/2018 PROCEDURE: First trimester ultrasound HISTORY: pelvic pain vag bleed r/o ectopic COMPARISON: 09/05/2018 TECHNIQUE: Standard protocol for this study/examination. FINDINGS: LMP: Prior examinations from the current : TECHNIQUE: Real-time 2D imaging, duplex and color Doppler. FINDINGS: NO POLE IDENTIFIED. Gestational age Below the threshold for calculation of a reliable gestational age based on gestational sac measurement 0.8 cm Gestational age derived from LMP: 7 weeks 3 days DEBRA based on LMP: 05/13/2019 Yolk sac not identified Cervix: No Cervical abnormalities: Negative examination for cervical dilatation or effacement. Closed cervix measuring 3.16 cm Subchorionic hemorrhage: None UTERUS: 5 x 6.1 x 9 cm. ADNEXA: Right: 1.9 x 1.7 x 4 cm. Normal Doppler arterial waveform documented. Left: 1.7 x 3 x 1.7 cm. Normal Doppler arterial waveform documented Fluid in the cul-de-sac: None IMPRESSION: Well-formed early gestational sac without visible yolk sac or pole. Concordant findings (preliminary report) provided by [facility].
== END 2018-09-27 02:49 | disposition home or self-care (01) ==
LOC: H.ER 21:44
DX: O20.0 Threatened abortion (principal)
CPT/HCPCS: 76817; 80048; 81025; 84702; 85025; 85610; 85730; 86850; 86900; 96360; 99284; J7120

== ENCOUNTER 2018-09-28 11:22 | Emergency (ER) | payer OTHER ==
[2018-09-28 11:22] VITALS: BMI 28.1
[2018-09-28 11:36] VITALS: O2SAT 99
[2018-09-28] MEDS ORDERED: Sodium Chloride 0.9% 1,000 ML IV ONE (13:19)
[2018-09-28 13:25] LABS: BASO % 0.5 % (0.0-2.0); EOS % 0.9 % (0.0-4.0); HEMOGLOBIN 14.2 g/dL (12.0-16.0); LYMPH % 20.6 % (20.0-40.0); MEAN CELL VOLUME 86.6 fl (81.0-99.0); MEAN CORPUSCULAR HEMOGLOBIN 29.8 pg (27.0-31.0); MEAN CORPUSCULAR HGB CONC 34.4 g/dL (33.0-37.0); MEAN PLATELET VOLUME 8.3 fl (7.2-11.7); MONO # 0.3 K/uL (0.0-0.8); MONO % 5.3 % (0.0-10.0); NEUT # 3.7 K/uL (1.8-7.0); NEUT % 72.7 % (50.0-75.0); NRBC % 0.1 % (0.0-0.0); RBC 4.78 Mil/uL (3.80-5.20); RED CELL DISTRIBUTION WIDTH 13.7 % (11.5-14.5)
[2018-09-28 13:29] LABS: ALB/GLOB RATIO 1.4 (1.0-2.1); ALBUMIN 4.8 g/dL (3.5-5.0); ALT/SGPT 44 U/L (9-52); AST/SGOT 43 U/L (14-36); BLOOD UREA NITROGEN 13 mg/dl (7-17); CALCIUM 10.5 mg/dL (8.4-10.2); GFR NON-AFRICAN AMERICAN > 60
--- NOTE | 2018-09-28 14:23 | ED PDOC ---
HPI: Female Pain Time Seen by Provider: 09/28/18 12:04 Chief Complaint (Nursing): Female Genitourinary Chief Complaint (Provider): Threatened Miscarriage History Per: Patient History/Exam Limitations: no limitations Onset/Duration Of Symptoms: Days (two) Current Symptoms Are (Timing): Still Present Severity: Mild (Pt, who is for several weeks, presents to the ED for the second time in two days complaining of the same symptoms that are further exaccerbated today: Pt denies fever, NVD, but complains of vaginal bleeding and pelvic pain.) Past Medical History Reviewed: Historical Data, Nursing Documentation, Vital Signs Vital Signs: Last Vital Signs Temp 98.6 F 09/28/18 11:34 Pulse 89 09/28/18 11:34 Resp 18 09/28/18 11:34 BP 116/73 09/28/18 11:34 Pulse Ox 99 09/28/18 11:34 - Medical History PMH: Asthma, Gastritis Denies: Depression - Family History Family History: States: Unknown Family Hx - Immunization History Hx Tetanus Toxoid Vaccination: No Hx Influenza Vaccination: No Hx Pneumococcal Vaccination: No - Home Medications Home Medications: Ambulatory Orders Medication Instructions Recorded 21/Iron Fu/Folic Acid 1 each PO DAILY #30 tablet 07/04/17 [ Complete Caplet] Ibuprofen [Motrin] 600 mg PO Q8 PRN #21 tab 07/16/17 oxyCODONE/Acetaminophen [Percocet 1 ea PO Q6 PRN #5 tab 07/16/17 5/325 mg Tab] Dicyclomine [Bentyl] 20 mg PO Q12 PRN #20 tab 02/23/18 Ondansetron ODT [Zofran ODT] 4 mg PO Q6 PRN #8 odt 02/23/18 Cephalexin [Keflex] 500 mg PO QID #27 capsule 09/05/18 Doxylamine/Pyridoxine HCl (B6) 1 tab PO ASDIR #20 tab 09/28/18 [Dic[address] Dr 10-10 mg Tablet] - Allergies Allergies/Adverse Reactions: Allergies Allergy/AdvReac Type Severity Reaction Status Date / Time pineapple Allergy ANGIOEDEMA Verified 02/22/18 23:45 Review of Systems ROS Statement: Except As Marked, All Systems Reviewed And Found Negative Genitourinary Female: Positive for: Vaginal Bleeding, Pelvic Pain Physical Exam - Reviewed Nursing Documentation Reviewed: Yes Vital Signs Reviewed: Yes - Physical Exam Appears: Positive for: Well, Non-toxic, No Acute Distress. Negative for: Uncomfortable Head Exam: Positive for: ATRAUMATIC, NORMAL INSPECTION Skin: Positive for: Normal Color, Warm, Dry. Negative for: Diaphoresis, Pallor, Rash Eye Exam: Positive for: Normal appearance, PERRL. Negative for: Nystagmus, Periorbital swelling, Periorbital tenderness ENT: Positive for: Normal ENT Inspection Cardiovascular/Chest: Positive for: Regular Rate, Rhythm Respiratory: Positive for: Normal Breath Sounds Pulses-Carotid (L): 2+ Pulses-Carotid (R): 2+ Pulses-Radial (L): 2+ Pulses-Radial (R): 2+ Gastrointestinal/Abdominal: Positive for: Tenderness (supra pubic tenderness to palpation). Negative for: Distended, Guarding, Rebound Pelvic Exam: Positive for: Active Bleeding Back: Positive for: Normal Inspection. Negative for: L CVA Tenderness, R CVA Tenderness - Laboratory Results Result Diagrams: 09/28/18 13:13 09/28/18 13:13 Lab Results: Total Bilirubin 0.6 mg/dl (0.2-1.3) 09/28/18 13:13 AST 43 U/L (14-36) H D 09/28/18 13:13 ALT 44 U/L (9-52) 09/28/18 13:13 Alkaline Phosphatase 52 U/L (38-126) 09/28/18 13:13 Total Protein 8.1 G/DL (6.3-8.2) 09/28/18 13:13 Albumin 4.8 g/dL (3.5-5.0) 09/28/18 13:13 Globulin 3.3 gm/dL (2.2-3.9) 09/28/18 13:13 Albumin/Globulin Ratio 1.4 (1.0-2.1) 09/28/18 13:13 - ECG O2 Sat by Pulse Oximetry: 99 Disposition - Clinical Impression Clinical Impression: Threatened - Patient ED Disposition Is Patient to be Admitted: No Doctor Will See Patient In The: Office Counseled Patient/Family Regarding: Studies Performed, Diagnosis, Need For Followup, Rx Given - Disposition [facility]errals[facility] [[facility]] Disposition: Routine/Home Disposition Time: 15:39 Condition: STABLE Additional Instructions: Follow up on Sunday, 09/30 at the [facility] Return to ED if bleeding intensifies or pain increases or you develop a fever >101F Tylenol 650mg 3-4 a day for pain Prescriptions: Doxylamine/Pyridoxine HCl (B6) [Eliceos Dr 10-10 mg Tablet] 1 tab PO ASDIR #20 tab Instructions: Threatened Miscarriage, Threatened Miscarriage (DC), Bleeding With (DC) Forms: [employer] (Romans[place])
[2018-09-28 14:41] LABS: SQUAMOUS EPITHIAL 20 /hpf (0-5); URINE BACTERIA RARE (<OCC); URINE BILIRUBIN NEGATIVE (NEGATIVE); URINE BLOOD LARGE (NEGATIVE); URINE CLARITY CLOUDY (Clear); URINE COLOR AMBER (YELLOW); URINE GLUCOSE (UA) NEG (NEGATIVE); URINE HYALINE CAST 0-2 /hpf (0-2); URINE LEUKOCYTE ESTERASE NEG Leu/uL (Negative); URINE PROTEIN 100 mg/dL (NEGATIVE); URINE UROBILINOGEN 0.2-1.0 mg/dL (0.2-1.0)
[2018-09-28 15:45] VITALS: BP 130/68; PULSE 82; RESP 20; TEMP 98.9
== END 2018-09-28 15:49 | disposition home or self-care (01) ==
LOC: H.ER 11:22
DX: O20.0 Threatened abortion (principal)
CPT/HCPCS: 80053; 81003; 84702; 85025; 96360; 99285; J7030